=== PATIENT | female | born 1975 | race African-American/Black ===

== ENCOUNTER 2017-03-13 10:50 | Day surgery (SDC) | payer MEDICAID ==
[~2017-03-13] VITALS: Ht 162.6 cm; Wt 95.3 kg
[2017-03-13 12:29] LABS: UCG SCREEN NEGATIVE
[2017-03-13] MEDS ORDERED: SODIUM CHLORIDE 0.9% 1,000 ML IV SCH (12:30)
[2017-03-13 12:56] LABS: BASOPHILS % 0.9 % (0.0-2.0); EOSINOPHILS % 1.7 % (0.0-5.0); HEMOGLOBIN. 11.6 g/dL (12.0-16.0); LYMPHOCYTES % 27.5 % (20.0-50.0); MEAN CORPUSCULAR HEMOGLOBIN 26.7 pg (28.0-32.0); MEAN CORPUSCULAR VOLUME 83.2 fL (81.0-99.0); MEAN PLATELET VOLUME 8.5 fl (7.4-10.4); MONOCYTES % 7.1 % (2.0-8.0); NEUTROPHILS % 62.8 % (40.0-76.0); PLATELET 351 x1000/uL (130-400); RED BLOOD CELL COUNT 4.32 mill/uL (4.2-5.4); RED CELL DISTRIBUTION WIDTH 16.5 % (11.6-14.6)
[2017-03-13] MEDS ORDERED: ONDANSETRON HCL 4MG/2ML VIAL ONE (13:53)
[2017-03-13] MEDS ORDERED: METOCLOPRAMIDE HCL 10MG/2ML VIAL ONE (13:53)
[2017-03-13] MEDS ORDERED: CEFAZOLIN SODIUM 1000MG/VIAL ONE (14:01)
[2017-03-13] MEDS ORDERED: ALBU18HF2 IH (14:31)
[2017-03-13] MEDS ORDERED: LISI-186 PO (14:31)
[2017-03-13] MEDS ORDERED: METF750T2 PO (14:31)
[2017-03-13] MEDS ORDERED: FLUN8.9H IH (14:31)
[2017-03-13] MEDS ORDERED: FERR325T30 PO (14:31)
[2017-03-13] MEDS ORDERED: HYDR-523 PO (14:31)
[2017-03-13] MEDS ORDERED: [UNRECOGNIZED DRUG - CODE] PO (14:31)
[2017-03-13] MEDS ORDERED: ONDANSETRON HCL 4MG/2ML VIAL IV NR (15:00)
[2017-03-13] MEDS ORDERED: MEPERIDINE HCL/PF 25MG/ML CPJ IV NR (15:00)
[2017-03-13] MEDS ORDERED: HYDROMORPHONE HCL/PF 2MG/ML CPJ IV NR (15:00)
[2017-03-13 15:22] VITALS: BP 125/75
== END 2017-03-13 16:15 | disposition home or self-care (01) ==
LOC: OR 10:50
PROVIDERS: ATTEND Obstetrics & Gynecology
DX: N85.00 Endometrial hyperplasia, unspecified (principal); E66.3 Overweight; I10 Essential (primary) hypertension; E11.9 Type 2 diabetes mellitus without complications; J45.909 Unspecified asthma, uncomplicated; D64.89 Other specified anemias; M19.90 Unspecified osteoarthritis, unspecified site; Z88.2 Allergy status to sulfonamides; Z91.018 Allergy to other foods
CPT/HCPCS: 36415; 58558; 81025; 82962; 85025; 86850; 86900; 86901; 88305; J0690; J1170; J2405; J2765; J7030